=== PATIENT | female | born 1980 | race Caucasian/White ===

== ENCOUNTER → 2017-01-19 | Outpatient (CLI) | payer BC ==
--- NOTE | ~2017-01-19 | MY29 ---
[facility] A Service [facility] RADIOLOGY TEXT RESULTS PATIENT: MARY KATE TO LOCATION: [facility] : [birth year] UNIT #: [id number] AGE: [address]: Mary Mcleod MD SEX: F ORDER DR: [id number] [facility] [address] [place], [place] [address] [id number] O MR#: [id number] Acc #: [id number] NAME: MARY KATE TO : 1980 SEX: F STUDY DATE/TIME: 01/19/2017 11:13 UNIT: [facility] ROOM: STUDY DESCRIPTION: MY TERRENCE SCREENING W/ CAD BILAT Attending Physician: Mary Mcleod M.D. Referring Physician: Mary Mcleod M.D. Ordering Physician: Mary Mcleod M.D. Primary Care Physician: Mary Mcleod M.D. MEDICAL IMAGING REPORT This report is preliminary unless electronic signature is present EXAM Digital screening mammogram, 01/19/2017, [facility] HISTORY 36-year-old woman; baseline mammogram. No risk elevation. COMPARISON None FINDINGS Digital imaging of each breast was completed utilizing a two-view examination of each breast in craniocaudal and mediolateral-oblique projections. Review and interpretation of digital mammograms include a second review in conjunction with FDA-approved CAD device. There is a normal parenchymal presentation bilaterally consistent with the patient's age. There are no breast masses imaged and no parenchymal asymmetry is visualized. There are no suspicious microcalcifications and I see no focal architectural disturbance. IMPRESSION Negative screening digital mammogram. One-year followup recommended. Patients over the age of 40 are entered into a reminder system with target due date for the next mammogram. A result letter will also be sent to the patient. BIRADS: 1 Negative Dictated by... Tang Wilkes M.D. [facility] A Service [facility] RADIOLOGY TEXT RESULTS PATIENT: MARY KATE TO LOCATION: [facility] : 80 UNIT #: [id number] AGE: [address]: Mary Mcleod MD SEX: F ORDER DR: THIS IS AN ELECTRONICALLY VERIFIED REPORT Tang Wilkes M.D. at 01/19/2017 3:22 PM Amy TD: 01/19/2017 14:31 JOB #: [id number] MEDICAL IMAGING REPORT Page 1 of 1 COPY
== END | disposition home or self-care (01) ==
LOC: CWCC 10:45
DX: Z12.31 Encounter for screening mammogram for malignant neoplasm of breast (principal)
CPT/HCPCS: G0202